=== PATIENT | male | born 1950 | race Caucasian/White ===

== ENCOUNTER → 2020-09-17 15:39 | Outpatient (CLI) | payer MEDICARE, SELFPAY ==
--- NOTE | ~2020-09-17 | XR_ITS ---
EXAMINATION: XR shoulder RT min 2V DATE: 09/17/2020 16:10 INDICATION: Limited range of motion at the right shoulder with inability to lift right arm post fall TECHNIQUE: AP internally and externally rotated, AP oblique externally rotated and transscapular Y vi ews of the right shoulder were obtained. COMPARISON: None FINDINGS: Oblique extra-articular fracture at the lateral right clavicle distal to the coracoclavicular ligamen t. There is 5 mm cephalad displacement. There are several displaced right-sided rib fractures which a re better appreciated on concurrent rib radiographs which have been dictated separately. 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 No pneumothorax. IMPRESSION: 1. Mild cephalad displacement of an extra articular fracture of the lateral right clavicle. 2. Multiple displaced right-sided rib fractures. No evident pneumothorax. Reviewed, dictated and finalized at location A. OR INVESTIGATOR IMPRESSION: 1. Mild cephalad displacement of an extra articular fracture of the lateral rig ht clavicle. 2. Multiple displaced right-sided rib fractures. No evident pneumothorax.
--- NOTE | ~2020-09-17 | XR_ITS ---
EXAMINATION: XR ribs RT 2V w CXR 2V INDICATION: Chest pain after fall TECHNIQUE: AP and lateral views of the chest and 3 views of the right ribs were obtained. COMPARISON: None. FINDINGS: There are acute fractures of the right second through ninth ribs. The second through sixth rib fractures are displaced. No pneumothorax is identified. There is a small right pleural effusion. An acute fracture in the distal right clavicle is also noted. The lungs are free of acute opacities. The cardiomediastinal silhouette is normal. There are vertebroplasty changes in the upper lumbar spin e. Lumbar compression fractures are noted. IMPRESSION: 1. Acute fractures of the right second through ninth ribs with displacement at the second through six th ribs. 2. Right distal clavicle fracture. 3. Small right pleural effusion. Reviewed, dictated and finalized at location A. 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 Acute fractures of the right second through ninth ribs with displacement at the second through sixth ribs. 2. Right distal clavicle fracture. 3. Small right pleural effusion.
== END ==
PROVIDERS: Visit Provider Nurse Practitioner Family
DX: R07.81 Pleurodynia (principal); J90 Pleural effusion, not elsewhere classified; S22.41XA Multiple fractures of ribs, right side, initial encounter for closed fracture; X58.XXXA Exposure to other specified factors, initial encounter; S42.031A Displaced fracture of lateral end of right clavicle, initial encounter for closed fracture
CPT/HCPCS: 71046; 71100; 73030

== ENCOUNTER → 2021-04-25 08:19 | Outpatient (CLI) | payer MEDICARE, SELFPAY ==
--- NOTE | ~2021-04-25 | XR_ITS ---
EXAMINATION: XR hand LT min 3V INDICATION: Left hand swelling TECHNIQUE: Three views of the left hand are obtained. COMPARISON: None available FINDINGS: The bones are osteopenic which limits the sensitivity for fracture however none is seen. Prince ne alignment is normal. There is mild osteoarthritis of multiple interphalangeal joints. No definite abnormality of the soft tissues is identified. IMPRESSION: 1. No acute osseous abnormality. Reviewed, dictated and finalized at location A.
== END ==
PROVIDERS: PCP Nurse Practitioner Family; Referring Provider Nurse Practitioner Family; Visit Provider Nurse Practitioner Family
DX: M79.89 Other specified soft tissue disorders (principal)
CPT/HCPCS: 73130